=== PATIENT | female | born 1975 | race African-American/Black ===

== ENCOUNTER 2016-10-23 15:04 | Emergency (ER) | payer OTHER ==
[~2016-10-23] VITALS: Ht 162.6 cm; Wt 95.6 kg
[2016-10-23] MEDS ORDERED: HYDROCHLOROTH12.5 M3 PO (15:47)
[2016-10-23 16:25] LABS: HEMATOCRIT 39.5 % (36.0-46.0); MCHC 33.4 G/DL (30.0-36.0); MCV 80.8 FL (83-99); MEAN PLAT.VOLUME 11.2 uM^3 (9.5-12.4); PLATELET COUNT 264 K/uL (156-360); RBC DIS.WIDTH-CV 14.2 % (11.8-14.6); RBC DIS.WIDTH-SD 40.6 % (39-53); RED BLOOD COUNT 4.89 M/uL (3.80-5.20); WHITE BLOOD COUNT 7.5 K/uL (4.1-10.2)
[2016-10-23 16:36] LABS: CHLORIDE 102 mEq/L (99-109); POTASSIUM 3.4 mEq/L (3.7-5.4); SODIUM 138 mEq/L (136-147)
[2016-10-23 16:38] LABS: GLUCOSE 97 mg/dL (70-99)
[2016-10-23 16:40] LABS: ANION GAP 8 MEQ/L (2-14)
[2016-10-23 16:42] LABS: GFR ESTIMATE (CALCULATED) > 59 mL/min/
[2016-10-23 16:43] LABS: UREA NITROGEN (BUN) 8 mg/dL (9-23)
[2016-10-23 19:52] VITALS: BP 143/74
== END 2016-10-23 19:53 | disposition left against medical advice (07) ==
LOC: EME 15:04
PROVIDERS: Emergency Medicine
DX: G43.909 Migraine, unspecified, not intractable, without status migrainosus (principal); I10 Essential (primary) hypertension; Z91.14 Patient's other noncompliance with medication regimen
CPT/HCPCS: 70450; 80048; 85027; 93005; 99281; 99285; J1200; J1885; J2405; J2765; J7030

== ENCOUNTER 2017-08-26 13:59 | Emergency (ER) | payer OTHER ==
[~2017-08-26] VITALS: Ht 162.6 cm; Wt 88.1 kg
[~2017-08-26 13:59] MED LIST: HYDROCHLOROTH12.5 M3 PO
[2017-08-26 14:48] LABS: HEMATOCRIT 38.5 % (36.0-46.0); MCH 26.9 PG (29.0-34.0); MCHC 32.2 G/DL (30.0-36.0); MCV 83.5 FL (83-99); MEAN PLAT.VOLUME 10.7 uM^3 (9.5-12.4); PLATELET COUNT 293 K/uL (156-360); RBC DIS.WIDTH-CV 14.3 % (11.8-14.6); RBC DIS.WIDTH-SD 43.3 % (39-53); RED BLOOD COUNT 4.61 M/uL (3.80-5.20); WHITE BLOOD COUNT 5.6 K/uL (4.1-10.2)
[2017-08-26 14:56] LABS: CHLORIDE 108 mEq/L (99-109); POTASSIUM 3.9 mEq/L (3.7-5.4); SODIUM 142 mEq/L (136-147)
[2017-08-26 14:58] LABS: GLUCOSE 89 mg/dL (70-99)
[2017-08-26 14:59] LABS: ANION GAP 10 MEQ/L (2-14)
[2017-08-26 15:00] LABS: TOTAL BILIRUBIN 0.7 mg/dL (0.0-1.0)
[2017-08-26 15:02] LABS: ALKALINE PHOSPHATASE 82 IU/L (3-129); GFR ESTIMATE (CALCULATED) > 59 mL/min/
[2017-08-26 15:03] LABS: UREA NITROGEN (BUN) 5 mg/dL (9-23)
[2017-08-26] MEDS ORDERED: ULTRAM50 MG PO (17:18)
[2017-08-26 18:31] VITALS: BP 165/115
== END 2017-08-26 18:32 | disposition home or self-care (01) ==
LOC: TRA 13:59 → EME 13:59 → TRA 18:32
PROVIDERS: Emergency Medicine
DX: S19.9XXA Unspecified injury of neck, initial encounter (principal); M25.561 Pain in right knee; R51 Headache; M54.5 Low back pain; V49.40XA Driver injured in collision with unspecified motor vehicles in traffic accident, initial encounter; Y92.410 Unspecified street and highway as the place of occurrence of the external cause; Z88.0 Allergy status to penicillin; Z88.6 Allergy status to analgesic agent
CPT/HCPCS: 70450; 71260; 72125; 72129; 72132; 73552; 73590; 74177; 80053; 83605; 85027; 86850; 86900; 86901; 99281; 99285; J2270